=== PATIENT | female | born 1990 | race Caucasian/White ===

== ENCOUNTER 2023-05-18 09:49 | Inpatient (IN) | payer MEDICAID ==
[~2023-05-18] VITALS: Ht 165.1 cm; Wt 108.0 kg
[2023-05-18 09:59] VITALS: BP 127/64; PULSE 101; RESP 20; TEMP 97.5; O2SAT 96
[2023-05-18] MEDS ORDERED: FUROSEMIDE 40 MG/4 ML VIAL IVP ONE (11:20)
[2023-05-18] MEDS ORDERED: NITROGLYCERIN 0.4 MG TAB SL ONE ×2 (11:20→13:15)
--- NOTE | 2023-05-18 12:07 | NUR ---
First contact with pt. Pt bib family for acute chest pain that started while at rest. Pt was sleeping when she felt a sharp stabbing pain in her chest radiating across, 07/08. Pain was intermittent. Pt admits to using meth regularly, last was 2 days ago. Pt is a/o x 4, vss, no ss of acute distress, breathing equal and unlabored, speech clear, family at bedside. IV started. Labs drawn and handed to lab. Medicated as ordered, tolerating well.
[2023-05-18] MEDS ORDERED: LORazepam 2 MG/ML VIAL IVP ONE (12:20)
[2023-05-18 12:21] LABS: ALBUMIN 3.4 g/dL (3.4-5.0); ANION GAP 12.5 (8-16); CARBON DIOXIDE 30.9 mmol/L (21-32); CREATININE 1.2 mg/dL (0.6-1.3); POTASSIUM 3.4 mmol/L (3.5-5.1); TOTAL BILIRUBIN 1.5 mg/dL (0.0-1.0)
[2023-05-18 12:26] LABS: BASOPHILS % (AUTO) 0.4 % (0.0-2.0); EOSINOPHILS % (AUTO) 0.2 % (0.0-4.0); HEMATOCRIT 51.9 % (36-48); HEMOGLOBIN 16.5 g/dL (12.0-16.0); LYMPHOCYTES # (AUTO) 2.4 K/uL (2.5-16.5); LYMPHOCYTES % (AUTO) 20.1 % (20.5-51.1); MEAN CORPUSCULAR HEMOGLOBIN 23 pg (27-31); MEAN CORPUSCULAR HGB CONC 32 g/dL (33-37); MEAN CORPUSCULAR VOLUME 70.6 fL (80-94); MONOCYTES # (AUTO) 0.7 K/uL (0.8-1.0); MONOCYTES % (AUTO) 6.3 % (1.7-9.3); NEUTROPHILS # (AUTO) 8.6 K/uL (1.8-7.7); PLATELET COUNT (AUTO) 310 K/uL (140-450); RED BLOOD CELL COUNT(AUTO) 7.35 MIL/uL (4.20-5.40); RED CELL DISTRIBUTION WIDTH 20.7 % (11.6-13.7); WHITE BLOOD COUNT (AUTO) 11.8 K/uL (4.8-10.8)
[2023-05-18] MEDS ORDERED: ONDANSETRON 4 MG/2 ML VIAL IVP PRN (14:10)
[2023-05-18] MEDS ORDERED: MAG SULF 2000 MG/WATER PREMIX 50 ML IV PRN (14:10)
[2023-05-18] MEDS ORDERED: MORPHINE SULFATE 2 MG/ML SYR IVP PRN (14:10)
[2023-05-18] MEDS ORDERED: DOCUSATE SODIUM 100 MG GELCAP PO PRN (14:10)
[2023-05-18] MEDS ORDERED: ZOLPIDEM 10 MG TAB PO PRN (14:10)
[2023-05-18] MEDS ORDERED: POTASSIUM CHLORIDE 10 MEQ TABER PO PRN (14:10)
[2023-05-18] MEDS ORDERED: ACETAMINOPHEN 325 MG TAB PO PRN (14:10)
[2023-05-18] MEDS ORDERED: LORazepam 2 MG/ML VIAL IVP PRN (14:10)
[2023-05-18] MEDS ORDERED: ALBUTEROL SULFATE/IPRATROPIU 3 ML SOL IH PRN (14:25)
[2023-05-18] MEDS ORDERED: NITROGLYCERIN 0.4 MG TAB SL PRN (14:25)
--- NOTE | 2023-05-18 14:30 | NUR ---
Pt resting in bed. Pt constantly pulls leads off and they are replaced. Pt aware of need for heart monitoring. Pain is "better" according to pt. Pt is a/o x 4, vss, no ss of acute distress, breathing equal and unlabored, speech clear.
--- NOTE | 2023-05-18 15:05 | NUR ---
Sister phone Lida Livingston [phone] Macrina Moore [phone]
--- NOTE | 2023-05-18 18:34 | NUR ---
Paracentisis performed by Dr Guerra. Pt tolerated procedure well. Pt is a/o x 4, vss, no ss of acute distress, vss.
--- NOTE | 2023-05-18 18:52 | NUR ---
Just recieved pt room info. Report given to GUERO Anthony. Pt in stable condition.
--- NOTE | 2023-05-18 19:45 | NUR ---
Pt brought to the floor.
[2023-05-18 20:00] VITALS: BP 137/68; PULSE 108; RESP 18; TEMP 97.6; O2SAT 98
[2023-05-18] MEDS: METOPROLOL 25 MG TAB PO SCH (20:33)
[2023-05-18 20:57] VITALS: PULSE 112; O2SAT 98
[2023-05-19] VITALS (10 sets, daily range): BP systolic 92–128; BP diastolic 39–77; PULSE 75–92; RESP 16–20; TEMP 96.5–97.6; O2SAT 95–100
[2023-05-19] MEDS ORDERED: DEXTROSE 50% 50 ML SYR IVP SCH (04:30)
[2023-05-19] MEDS ORDERED: DEXTROSE 50% 50 ML SYR IVP ONE (04:31)
--- NOTE | 2023-05-19 04:40 | NUR ---
Received patient from ER, is alert and oriented x3, c/o shortness of breath and chest pain, admit diagnosis is CHF, Patient slept well through the night, voiced no c/o, 0400 vital sign done on patient, patient is not repsonding to commands, not arousable, body felt clammy, accu check performed, glucose is 31, patient is not a diabetic, called Dr Gould for order. D50 1 amp given Patient awoke and talking, offered patient 2 juices and a sandwich. AM lab drawn by [employer].
[2023-05-19 05:29] LABS: BASOPHILS % (AUTO) 0.2 % (0.0-2.0); HEMOGLOBIN 16.9 g/dL (12.0-16.0); LYMPHOCYTES # (AUTO) 2.6 K/uL (2.5-16.5); MONOCYTES # (AUTO) 0.5 K/uL (0.8-1.0)
[2023-05-19 05:57] LABS: ANION GAP 19.7 (8-16); CARBON DIOXIDE 25.3 mmol/L (21-32); HEMATOCRIT 52.7 % (36-48); LYMPHOCYTES % (AUTO) 16.7 % (20.5-51.1); MEAN CORPUSCULAR HEMOGLOBIN 22 pg (27-31); MEAN CORPUSCULAR HGB CONC 32 g/dL (33-37); MEAN CORPUSCULAR VOLUME 69.7 fL (80-94); NEUTROPHILS # (AUTO) 12.5 K/uL (1.8-7.7); NEUTROPHILS % (AUTO) 80.1 % (42.2-75.2); PLATELET COUNT (AUTO) 254 K/uL (140-450); RED BLOOD CELL COUNT(AUTO) 7.56 MIL/uL (4.20-5.40); WHITE BLOOD COUNT (AUTO) 15.6 K/uL (4.8-10.8)
[2023-05-19 06:24] LABS: CHOL/HDL RATIO 3.8 (1-4.5)
--- NOTE | 2023-05-19 07:30 | NUR ---
RECEIVED PATIENT FROM PM NURSE FOR CONTINUATION OF CARE. PATIENT SEEN ON BED ASLEEP. NORMAL RISE ADN FALL OF CHEST.
[2023-05-19] MEDS: FUROSEMIDE 40 MG/4 ML VIAL IVP SCH (09:18)
[2023-05-19] MEDS: METOPROLOL 25 MG TAB PO SCH ×2 (09:18→21:00)
--- NOTE | 2023-05-19 14:11 | NUR ---
FOUND PT ON 3L NC . PT WAS SLEEPING WOKE PT UP TO ASSESSIF SHE NEEDED O2. PT WAS TITRATED TO ROOM AIR AND HELD SATURATION OF 95%. NO DISTRESS NOTED. RN AWARE OF O2 TITRATION. WILL CONTINUE TO MONITOR.
--- NOTE | 2023-05-19 19:05 | NUR ---
PT IS ON ROOM AIR, SLEEPING IN NO RESPIRATORY DISTRESS, CALL LIGHT WITHIN REACH, WILL CONTINUE TO MONITOR
--- NOTE | 2023-05-19 19:30 | NUR ---
RECEIVED REPORT FROM DAY SHIFT NURSE FOR CONTINUITY OF CARE. PT IS RESTING IN BED. NOT IN ANY DISTRESS. BREATHING EVEN AND UNLABORED. POC DISCUSSED. CALL LIGHT WITHIN REACH. WILL CONTINUE TO MONITOR THE PT.
[2023-05-20] VITALS (8 sets, daily range): BP systolic 104–157; BP diastolic 56–71; PULSE 68–85; RESP 17–20; TEMP 95.7–98.4; O2SAT 94–97
--- NOTE | 2023-05-20 01:40 | NUR ---
OBSERVED PT. PT IS SLEEPING IN BED. NOT IN ANY DISTRESS. BREATHING EVEN AND UNLABORED. CALL LIGHT WITHIN REACH. WILL CONTINUE TO MONITOR THE PT.
[2023-05-20 05:19] LABS: BASOPHILS # (AUTO) 0.1 K/uL (0.00-0.22); BASOPHILS % (AUTO) 0.5 % (0.0-2.0); HEMATOCRIT 53.1 % (36-48); HEMOGLOBIN 16.9 g/dL (12.0-16.0); LYMPHOCYTES # (AUTO) 5.1 K/uL (2.5-16.5); LYMPHOCYTES % (AUTO) 28.3 % (20.5-51.1); MEAN CORPUSCULAR HEMOGLOBIN 22 pg (27-31); MEAN CORPUSCULAR HGB CONC 32 g/dL (33-37); MEAN CORPUSCULAR VOLUME 69.9 fL (80-94); MONOCYTES # (AUTO) 1.6 K/uL (0.8-1.0); NEUTROPHILS # (AUTO) 11.2 K/uL (1.8-7.7); NEUTROPHILS % (AUTO) 62.2 % (42.2-75.2); PLATELET COUNT (AUTO) 230 K/uL (140-450); RED BLOOD CELL COUNT(AUTO) 7.59 MIL/uL (4.20-5.40); RED CELL DISTRIBUTION WIDTH 20.9 % (11.6-13.7)
[2023-05-20 05:20] LABS: ANION GAP 18.5 (8-16); CARBON DIOXIDE 24.6 mmol/L (21-32); CREATININE 2.5 mg/dL (0.6-1.3); POTASSIUM 4.1 mmol/L (3.5-5.1)
--- NOTE | 2023-05-20 07:15 | NUR ---
RECEIVED PT FROM NOC SHIFT FOR CONTINUITY OF CARE. ALERT AND ORIENTED X4. NO SIGNS OF RESPIRATORY DISTRESS. BREATHING IS EVEN AND UNLABORED. CONTINUES 02 AT 2 LITTERS VIA NC. NO C/O OF PAIN AT THIS TIME. WILL CONTINUE TO MONITOR
--- NOTE | 2023-05-20 07:18 | NUR ---
ENDORSED PT TO DAY SHIFT NURSE FOR CONTINUITY OF CARE. PT IS STABLE.
[2023-05-20] MEDS: FUROSEMIDE 40 MG/4 ML VIAL IVP SCH (09:00)
--- NOTE | 2023-05-20 10:36 | NUR ---
Metoprolol and Furosemide medication for 0900 was not given due to low BP.
--- NOTE | 2023-05-20 11:41 | NUR ---
PATIENT HAS BEEN SCREENED AND CATEGORIZED MODERATE NUTRITION RISK. PATIENT WILL BE SEEN WITHIN 3-5 DAYS OF ADMISSION. / [address]
--- NOTE | 2023-05-20 19:20 | NUR ---
PT WAS ENDORSED TO THE NIGHT STAFF FOR CONTINUITY OF CARE. PT WAS STABLE
--- NOTE | 2023-05-20 19:30 | NUR ---
RECEIVED PT FROM DAY RN FOR CONTINUITY OF CARE. PT AWAKE, ALERT AND ORIENTED X 4. AMBULATORY, BREATHING EVEN AND UNLABORED. NO S/SX OF DISTRESS. NO COMPLAINS OF PAIN.POC DISCUSSED. URINE SAMPLE NEEDED. PT REFUSING TO GIVE SAMPLE. ALL PRECAUTIONS IN PLACE. CALL LIGHT WITHIN REACH. WILL CONTINUE TO MONITOR.
--- NOTE | 2023-05-20 23:12 | NUR ---
PT ASLEEP. NO S/SX OF DISTRESS NOTED. CHEST RISE AND FALL NOTED. ALL PRECAUTIONS IN PLACE. CALL LIGHT WITHIN REACH. WILL CONTINUE TO MONITOR.
[2023-05-21] VITALS (8 sets, daily range): BP systolic 114–135; BP diastolic 52–84; PULSE 69–76; RESP 17–20; TEMP 96.1–97.6; O2SAT 93–97
--- NOTE | 2023-05-21 02:00 | NUR ---
PT ASLEEP. CHEST RISE AND FALL NOTED. ALL PRECAUTIONS IN PLACE. CALL LIGHT WITHIN REACH. WILL CONTINUE TO MONITOR.
[2023-05-21 05:04] LABS: BASOPHILS # (AUTO) 0.1 K/uL (0.00-0.22); BASOPHILS % (AUTO) 0.8 % (0.0-2.0); EOSINOPHILS # (AUTO) 0.1 K/uL (0-0.4); EOSINOPHILS % (AUTO) 0.8 % (0.0-4.0); HEMATOCRIT 48.6 % (36-48); HEMOGLOBIN 15.4 g/dL (12.0-16.0); LYMPHOCYTES % (AUTO) 30.2 % (20.5-51.1); MEAN CORPUSCULAR HEMOGLOBIN 22 pg (27-31); MEAN CORPUSCULAR HGB CONC 32 g/dL (33-37); MEAN CORPUSCULAR VOLUME 70.1 fL (80-94); MONOCYTES # (AUTO) 0.6 K/uL (0.8-1.0); MONOCYTES % (AUTO) 4.2 % (1.7-9.3); NEUTROPHILS # (AUTO) 8.5 K/uL (1.8-7.7); PLATELET COUNT (AUTO) 265 K/uL (140-450); RED BLOOD CELL COUNT(AUTO) 6.93 MIL/uL (4.20-5.40); RED CELL DISTRIBUTION WIDTH 20.3 % (11.6-13.7); WHITE BLOOD COUNT (AUTO) 13.3 K/uL (4.8-10.8)
[2023-05-21 05:44] LABS: ANION GAP 13.4 (8-16); CARBON DIOXIDE 26.3 mmol/L (21-32); CREATININE 1.7 mg/dL (0.6-1.3); POTASSIUM 3.7 mmol/L (3.5-5.1)
--- NOTE | 2023-05-21 06:52 | NUR ---
PT IS STABLE. NO ACUTE EVENTS OVERNIGHT. NO S/SX OF DISTRESS AT THE MOMENT. ALL NEEDS MET. NO PAIN AT THIS MOMENT. ALL PRECAUTIONS IN PLACE. CALL LIGHT WITHIN REACH. WILL ENDORSE TO AM SHIFT NURSE.
--- NOTE | 2023-05-21 07:30 | NUR ---
RECEIVED PT FORM LUNG GUN OPERATOR NURSE FOR CONTINUITY OF CARE. PT IS SLEEPING IN BED. VISIBLE CHEST RISE/FALL, RESPIRATIONS EVEN AND UNLABORED ON RA. SKIN WARM AND DRY. IV ON RAC 20G, SALINE LOCK. CALL LIGHT WITHIN REACH. ALL SAFETY PRECAUTIONS IN PLACE.
--- NOTE | 2023-05-21 08:50 | NUR ---
[place] TECH CAME INTO ROOM. PATIENT SENT TECH AWAY, STATES SHE IS SLEEPING TO COME BACK LATER.
--- NOTE | 2023-05-21 13:00 | NUR ---
REMINDED PT WE ARE STILL AWAITING URINE SAMPLE FOR URINE CULTURE. PT SAYS SHE THINKS SHE ALREADY GAVE SAMPLE TO WORKPLACE RELATIONS ADVISER NURSE EARLY THIS MORNING. INFORMED HER THERE HAS BEEN NO COLLECTION MADE. PT STATES SHE WILL CALL WHEN SHE HAS A SAMPLE.
--- NOTE | 2023-05-21 13:59 | NUR ---
CALLED [facility] LOCATED AT [address] [facility] [id number]. WAS ABLE TO SCEDUALE A HOSPITAL FOLLOW UP APPOINTMENT FOR 05/31/2023 AT 0900. WENT TO BEDSIDE BUT PATIENT WAS IN BATHROOM SO INFORMED NURSE YONAS OF THE ABOVE INFO WELL GAVE APPOINTMENT SLIP CONTAINING THE SAME INFORMATION
--- NOTE | 2023-05-21 15:37 | NUR ---
DC'D 20G IV ON RAC. NEW INSERTION, IV ON L HAND 22G.
[2023-05-21 18:29] LABS: APPEARANCE,URINE CLEAR (CLEAR); BILIRUBIN,URINE NEGATIVE (NEGATIVE); BLOOD, URINE NEGATIVE (NEGATIVE); COLOR,URINE YELLOW (YELLOW); LEUKOCYTE ESTERASE ,URINE TRACE (NEGATIVE); NITRITE, URINE NEGATIVE (NEGATIVE); UGLUCOSE NEGATIVE (NEGATIVE)
[2023-05-21 18:41] LABS: BARBITURATE, URINE NEGATIVE ng/ml (NEG <=200); BENZODIAZEPINE, URINE NEGATIVE ng/mL (NEG <=200); CANNABINOID, URINE NEGATIVE ng/mL (NEG <=50); COCAINE, URINE NEGATIVE ng/mL (NEG <=300); OPIATE, URINE NEGATIVE ng/mL (NEG <=2000); PHENCYCLIDINE SCREEN,URINE NEGATIVE ng/mL (NEG <=25)
[2023-05-21 18:42] LABS: RBC,URINE 0-5 /HPF (0-5)
--- NOTE | 2023-05-21 19:25 | NUR ---
ENDORSED PT TO WELDER FITTER NURSE FOR CONTINUITY OF CARE. PT IS STABLE.
--- NOTE | 2023-05-21 19:26 | NUR ---
RECEIVED PT ON BED, AWAKE , ALERT AND ABLE TO VERBALIZED NEEDS. NO COMPLAINTS OF PAIN AND IS AMBULATORY. IV SITE IS ON LEFT HAND 22G AND ON SALINE LOCK. SKIN INTACT. PT IS ON CARDIAC DIET.
--- NOTE | 2023-05-21 19:57 | NUR ---
PT VERBALIZED WANTS TO GO HOME. EDUCATE AND EXPLAINED PT THAT NO DISCHARGE ORDER FROM DOCTOR AND IS WAITING FOR ECHO AND URINE /CULTURE RESULTS. PT DOES NOT WANT TO LISTEN AND STATED WILL DISCHARGE HERSELF OUT FROM HOSPITAL. REPORTED TO DR. ANSELMO MD AWARE.
--- NOTE | 2023-05-21 20:05 | NUR ---
PT SIGNED AMA PAPER. SHE STATED HER SISTER ALREADY IN THE FRONT TO PICK HER UP.
--- NOTE | 2023-05-21 20:35 | NUR ---
PT LEFT AT 20.35.
== END 2023-05-21 20:32 | disposition left against medical advice (07) | DRG 194 ==
LOC: MED 09:49 → MTU 14:25
PROVIDERS: ADMIT General Practice; ATTEND General Practice
DX: I11.0 Hypertensive heart disease with heart failure (principal); N17.0 Acute kidney failure with tubular necrosis; J96.00 Acute respiratory failure, unspecified whether with hypoxia or hypercapnia; K56.609 Unspecified intestinal obstruction, unspecified as to partial versus complete obstruction; E87.20 Acidosis, unspecified; R65.10 Systemic inflammatory response syndrome (SIRS) of non-infectious origin without acute organ dysfunction; E86.0 Dehydration; F15.10 Other stimulant abuse, uncomplicated; J45.909 Unspecified asthma, uncomplicated; D64.9 Anemia, unspecified; E66.9 Obesity, unspecified; E16.2 Hypoglycemia, unspecified; E87.6 Hypokalemia; Z68.39 Body mass index [BMI] 39.0-39.9, adult; Z71.51 Drug abuse counseling and surveillance of drug abuser; I50.41 Acute combined systolic (congestive) and diastolic (congestive) heart failure
CPT/HCPCS: 36415; 71045; 80048; 80053; 80305; 81001; 82948; 83036; 83735; 83880; 84702; 85025; 85379; 87040; 87081; 87086; 96374; 96375; 99285; J1940; J2060; J3475; Q0092

== ENCOUNTER 2023-11-15 22:03 | Emergency (ER) | payer MEDICAID ==
[~2023-11-15] VITALS: Ht 165.1 cm; Wt 99.8 kg
[2023-11-15 22:10] VITALS: BP 145/100; PULSE 109; RESP 18; TEMP 98; O2SAT 96
[2023-11-15 23:43] LABS: APPEARANCE,URINE CLEAR (CLEAR); BILIRUBIN,URINE NEGATIVE (NEGATIVE); BLOOD, URINE NEGATIVE (NEGATIVE); COLOR,URINE YELLOW (YELLOW); LEUKOCYTE ESTERASE ,URINE NEGATIVE (NEGATIVE); NITRITE, URINE NEGATIVE (NEGATIVE); PROTEIN,URINE 1+ (NEGATIVE); UGLUCOSE NEGATIVE (NEGATIVE); UROBILINOGEN,URINE 0.2 EU/dL (0.2 - 1)
[2023-11-16 01:15] LABS: BASOPHILS # (AUTO) 0.1 K/uL (0.00-0.22); BASOPHILS % (AUTO) 0.7 % (0.0-2.0); EOSINOPHILS # (AUTO) 0.1 K/uL (0-0.4); EOSINOPHILS % (AUTO) 0.6 % (0.0-4.0); HEMATOCRIT 46.5 % (36-48); HEMOGLOBIN 15.1 g/dL (12.0-16.0); LYMPHOCYTES # (AUTO) 2.9 K/uL (2.5-16.5); LYMPHOCYTES % (AUTO) 27.7 % (20.5-51.1); MEAN CORPUSCULAR HEMOGLOBIN 24 pg (27-31); MEAN CORPUSCULAR HGB CONC 33 g/dL (33-37); MONOCYTES % (AUTO) 9.3 % (1.7-9.3); NEUTROPHILS # (AUTO) 6.4 K/uL (1.8-7.7); NEUTROPHILS % (AUTO) 61.7 % (42.2-75.2); PLATELET COUNT (AUTO) 272 K/uL (140-450); RED BLOOD CELL COUNT(AUTO) 6.38 MIL/uL (4.20-5.40); RED CELL DISTRIBUTION WIDTH 17.2 % (11.6-13.7); WHITE BLOOD COUNT (AUTO) 10.4 K/uL (4.8-10.8)
[2023-11-16 01:17] LABS: ANION GAP 11.1 (8-16); CALCIUM 8.7 mg/dL (8.5-10.1); CARBON DIOXIDE 31.2 mmol/L (21-32); CREATININE 1.2 mg/dL (0.6-1.3); POTASSIUM 3.3 mmol/L (3.5-5.1)
[2023-11-16 01:49] LABS: BARBITURATE, URINE NEGATIVE ng/ml (NEG <=200)
[2023-11-16 01:50] LABS: AMPHETAMINE, URINE POSITIVE ng/ml (NEG <=1000); BENZODIAZEPINE, URINE NEGATIVE ng/mL (NEG <=200); CANNABINOID, URINE NEGATIVE ng/mL (NEG <=50); COCAINE, URINE NEGATIVE ng/mL (NEG <=300); OPIATE, URINE NEGATIVE ng/mL (NEG <=2000); PHENCYCLIDINE SCREEN,URINE NEGATIVE ng/mL (NEG <=25)
[2023-11-16] MEDS ORDERED: ALBU0.0912 IH (02:48)
== END 2023-11-16 02:54 | disposition home or self-care (01) ==
LOC: MED 22:03
DX: F12.90 Cannabis use, unspecified, uncomplicated (principal); R06.00 Dyspnea, unspecified; R10.9 Unspecified abdominal pain; J45.909 Unspecified asthma, uncomplicated; J44.9 Chronic obstructive pulmonary disease, unspecified; Z79.899 Other long term (current) drug therapy
CPT/HCPCS: 36415; 71046; 80048; 80305; 81003; 81025; 83880; 84484; 85025; 93005; 99285